=== PATIENT | female | born 1960 | race Caucasian/White ===

== ENCOUNTER 2016-06-27 12:34 | Inpatient (IN) | payer OTHER ==
[~2016-06-27] VITALS: Ht 158.8 cm; Wt 71.7 kg
[~2016-06-27 12:34] MED LIST: ADVAIR 250/501 DISK IH; FLEXERIL5 MG PO; KLONOPIN0.5 M1 PO; MOTRIN600 MG PO; NORCO 5/3251 TABLET PO; OMEPRAZOLE40 M1 PO; ONDANSETRON HCL4 MG PO; PROVENTIL,200 INHALA IH; RANITIDINE HCL300 MG PO; SEROQUEL100 MG PO; SUCRALFATE1 GM/10 ML PO
[2016-06-27 13:20] LABS: EOSINOPHIL (%) 1.5 % (0-5); EOSINOPHIL COUNT 0.1 K/uL (0-0.3); HEMATOCRIT 40.6 % (36.0-46.0); IMMATURE GRANULOCYTE (%) 0.6 % (0.0-0.7); IMMATURE GRANULOCYTE COUNT 0.4 K/uL; LYMPHOCYTE COUNT 3.5 K/uL (1.0-2.8); MCH 32.4 PG (29.0-34.0); MCHC 34.7 G/DL (30.0-36.0); MCV 93.3 FL (83-99); MONOCYTE (%) 9.1 % (3-12); MONOCYTE COUNT 0.6 K/uL (0-0.8); NEUTROPHIL (%) 36.8 % (45-76); NEUTROPHIL COUNT 2.5 K/uL (1.8-6.4); PLATELET COUNT 265 K/uL (156-360); RBC DIS.WIDTH-CV 13.1 % (11.8-14.6); RED BLOOD COUNT 4.35 M/uL (3.80-5.20); WHITE BLOOD COUNT 6.7 K/uL (4.1-10.2)
[2016-06-27 13:28] LABS: CHLORIDE 104 mEq/L (99-109)
[2016-06-27 13:29] LABS: POTASSIUM 3.7 mEq/L (3.7-5.4); SODIUM 137 mEq/L (136-147)
[2016-06-27 13:30] LABS: GLUCOSE 101 mg/dL (70-99); INTER. NORMALIZED RATIO 1.1; PROTHROMBIN TIME 11.4 (9.2-11.2); PTT 29.6 (25-32)
[2016-06-27 13:32] LABS: ANION GAP 11 MEQ/L (2-14)
[2016-06-27 13:34] LABS: GFR ESTIMATE (CALCULATED) > 59 mL/min/
[2016-06-27 13:35] LABS: UREA NITROGEN (BUN) 12 mg/dL (9-23)
[2016-06-27 13:40] LABS: TROP-I INTERPRETATION NEGATIVE; TROPONIN-I < 0.01 ng/mL (0.0-0.30)
[2016-06-27] MEDS ORDERED: VENTOLIN HFA18 GM IH (16:09)
[2016-06-27] MEDS ORDERED: LISINOPRIL-HCT1 EAC3 PO (16:10)
[2016-06-27] MEDS ORDERED: BENADRYL25 MG PO (16:11)
[2016-06-27] MEDS ORDERED: COMBIVENT RESPIM4 GM IH (16:11)
[2016-06-27] MEDS ORDERED: TRAMADOL HCL50 MG PO (16:11)
[2016-06-27 17:33] LABS: D-DIMER ELISA 0.22 mg/L FEU (< 0.57)
[2016-06-27 17:47] LABS: HDL CHOLESTEROL 58 MG/DL (Desirable>=50); LDL CHOLESTEROL 96 mg/dL (Desirable<100); NON-HDL CHOLESTEROL 105 mg/dL (Desirable<160); TOTAL CHOLESTEROL 163 mg/dL (Desirable<200); TRIGLYCERIDES 46 MG/DL (Normal: <150)
[2016-06-27 17:48] VITALS: BP 117/77
[2016-06-27 19:11] LABS: TROP-I INTERPRETATION NEGATIVE; TROPONIN-I < 0.01 ng/mL (0.0-0.30)
[2016-06-28] VITALS (7 sets, daily range): BP systolic 88–109; BP diastolic 51–65
[2016-06-28 01:30] LABS: TROP-I INTERPRETATION NEGATIVE; TROPONIN-I < 0.01 ng/mL (0.0-0.30)
[2016-06-28 06:35] LABS: HEMATOCRIT 35.6 % (36.0-46.0); MCH 31.9 PG (29.0-34.0); MCHC 33.1 G/DL (30.0-36.0); MCV 96.2 FL (83-99); MEAN PLAT.VOLUME 9.4 uM^3 (9.5-12.4); PLATELET COUNT 202 K/uL (156-360); RBC DIS.WIDTH-CV 13.4 % (11.8-14.6); WHITE BLOOD COUNT 6.7 K/uL (4.1-10.2)
[2016-06-28 06:50] LABS: ANION GAP 8 MEQ/L (2-14); CHLORIDE 103 MEQ/L (99-109); GFR ESTIMATE (CALCULATED) > 59 mL/min/; GLUCOSE 77 mg/dL (70-99); POTASSIUM 3.7 MEQ/L (3.7-5.4); SAMPLE HEMOLYSIS CHECK 0; SAMPLE ICTERIC CHECK 0; SAMPLE LIPEMIA CHECK 0; SODIUM 136 MEQ/L (136-147); UREA NITROGEN (BUN) 17 mg/dL (9-23)
[2016-06-28 09:22] LABS: LYME DISEASE SEROLOGY SCREEN NEGATIVE (NEGATIVE)
[2016-06-28 20:50] LABS: ADD MIUA? YES; BILIRUBIN NEGATIVE; BLOOD MODERATE; COLOR YELLOW ((YELLOW)); GLUCOSE (STRIP) NEGATIVE; KETONES NEGATIVE; LEUKOCYTES NEGATIVE; NITRITE NEGATIVE; PROTEIN (STRIP) NEGATIVE; SPECIFIC GRAVITY 1.014 (1.000-1.030); UROBILINOGEN 0.2 MG/DL (0.2-1.0)
[2016-06-28 21:01] LABS: BACTERIA 2+ /HPF; CASTS NONE SEEN /LPF; CRYSTALS NONE SEEN; EPITHELIAL CELLS 1+ /HPF; MUCUS RARE /LPF; RED BLOOD CELLS 0-5 /HPF (0-5); UCUL ADDED? NO; WHITE BLOOD CELLS 0-5 /HPF (0-5)
[2016-06-29 00:20] VITALS: BP 95/54
[2016-06-29 04:04] VITALS: BP 85/51
[2016-06-29 06:01] LABS: EOSINOPHIL (%) 1.9 % (0-5); EOSINOPHIL COUNT 0.1 K/uL (0-0.3); IMMATURE GRANULOCYTE (%) 0.2 % (0.0-0.7); MCHC 32.5 G/DL (30.0-36.0); MCV 98.5 FL (83-99); MEAN PLAT.VOLUME 9.3 uM^3 (9.5-12.4); MONOCYTE (%) 5.2 % (3-12); MONOCYTE COUNT 0.3 K/uL (0-0.8); NEUTROPHIL (%) 41.3 % (45-76); NEUTROPHIL COUNT 2.4 K/uL (1.8-6.4); PLATELET COUNT 201 K/uL (156-360); RBC DIS.WIDTH-CV 13.8 % (11.8-14.6); RBC DIS.WIDTH-SD 49.5 % (39-53); RED BLOOD COUNT 3.25 M/uL (3.80-5.20); WHITE BLOOD COUNT 5.8 K/uL (4.1-10.2)
[2016-06-29 06:30] LABS: ALKALINE PHOSPHATASE 66 IU/L (3-129); AMYLASE 27 IU/L (1-118); ANION GAP 7 MEQ/L (2-14); CHLORIDE 109 MEQ/L (99-109); DIRECT BILIRUBIN 0.1 mg/dL (0.0-0.3); GFR ESTIMATE (CALCULATED) > 59 mL/min/; POTASSIUM 3.9 MEQ/L (3.7-5.4); SAMPLE HEMOLYSIS CHECK 0; SAMPLE ICTERIC CHECK 0; SAMPLE LIPEMIA CHECK 0; SODIUM 142 MEQ/L (136-147); TOTAL BILIRUBIN 0.2 MG/DL (0.0-1.0); UREA NITROGEN (BUN) 11 mg/dL (9-23)
[2016-06-29 06:33] LABS: GLUCOSE 97 mg/dL (70-99)
[2016-06-29 07:43] VITALS: BP 95/59
[2016-06-29 11:05] VITALS: BP 113/69
[2016-06-29 15:16] VITALS: BP 124/69
[2016-06-29 20:14] VITALS: BP 133/73
[2016-06-30 00:21] VITALS: BP 130/74
[2016-06-30 04:53] LABS: EOSINOPHIL (%) 2.1 % (0-5); EOSINOPHIL COUNT 0.1 K/uL (0-0.3); HEMATOCRIT 31.8 % (36.0-46.0); MEAN PLAT.VOLUME 9.1 uM^3 (9.5-12.4); MONOCYTE (%) 7.9 % (3-12); MONOCYTE COUNT 0.5 K/uL (0-0.8); NEUTROPHIL (%) 40.7 % (45-76); NEUTROPHIL COUNT 2.5 K/uL (1.8-6.4); PLATELET COUNT 224 K/uL (156-360); RBC DIS.WIDTH-CV 13.3 % (11.8-14.6); RED BLOOD COUNT 3.28 M/uL (3.80-5.20); WHITE BLOOD COUNT 6.1 K/uL (4.1-10.2)
[2016-06-30 04:55] VITALS: BP 104/65
[2016-06-30 05:01] LABS: CHLORIDE 107 mEq/L (99-109); POTASSIUM 4.1 mEq/L (3.7-5.4); SODIUM 142 mEq/L (136-147)
[2016-06-30 05:03] LABS: GLUCOSE 95 mg/dL (70-99)
[2016-06-30 05:04] LABS: ANION GAP 7 MEQ/L (2-14)
[2016-06-30 05:05] LABS: TOTAL BILIRUBIN 0.1 mg/dL (0.0-1.0)
[2016-06-30 05:06] LABS: ALKALINE PHOSPHATASE 80 IU/L (3-129)
[2016-06-30 05:07] LABS: GFR ESTIMATE (CALCULATED) > 59 mL/min/
[2016-06-30 05:08] LABS: UREA NITROGEN (BUN) 14 mg/dL (9-23)
[2016-06-30 08:45] VITALS: BP 101/58
[2016-06-30 11:50] VITALS: BP 91/55
[2016-06-30 15:53] VITALS: BP 127/66
[2016-06-30 19:44] VITALS: BP 115/63
[2016-07-01 00:04] VITALS: BP 122/64
[2016-07-01 04:16] VITALS: BP 128/70
[2016-07-01 06:24] LABS: EOSINOPHIL (%) 3.4 % (0-5); EOSINOPHIL COUNT 0.2 K/uL (0-0.3); IMMATURE GRANULOCYTE (%) 0.2 % (0.0-0.7); LYMPHOCYTE COUNT 2.5 K/uL (1.0-2.8); MCHC 32.9 G/DL (30.0-36.0); MCV 97.1 FL (83-99); MEAN PLAT.VOLUME 9.4 uM^3 (9.5-12.4); MONOCYTE (%) 7.4 % (3-12); MONOCYTE COUNT 0.4 K/uL (0-0.8); NEUTROPHIL (%) 35.3 % (45-76); NEUTROPHIL COUNT 1.7 K/uL (1.8-6.4); PLATELET COUNT 219 K/uL (156-360); RBC DIS.WIDTH-CV 13.5 % (11.8-14.6); RBC DIS.WIDTH-SD 47.8 % (39-53); WHITE BLOOD COUNT 4.7 K/uL (4.1-10.2)
[2016-07-01 06:58] LABS: ALKALINE PHOSPHATASE 68 IU/L (3-129); ANION GAP 6 MEQ/L (2-14); CHLORIDE 102 MEQ/L (99-109); GFR ESTIMATE (CALCULATED) > 59 mL/min/; GLUCOSE 88 mg/dL (70-99); POTASSIUM 3.9 MEQ/L (3.7-5.4); SAMPLE HEMOLYSIS CHECK 0; SAMPLE ICTERIC CHECK 0; SAMPLE LIPEMIA CHECK 0; SODIUM 140 MEQ/L (136-147); UREA NITROGEN (BUN) 17 mg/dL (9-23)
[2016-07-01 06:59] LABS: TOTAL BILIRUBIN 0.3 MG/DL (0.0-1.0)
[2016-07-01 08:08] VITALS: BP 84/51
[2016-07-01 10:35] VITALS: BP 111/72
[2016-07-01 16:33] VITALS: BP 112/68
[2016-07-01 20:23] VITALS: BP 127/63
[2016-07-02 00:58] VITALS: BP 102/54
[2016-07-02 04:36] VITALS: BP 101/56
[2016-07-02] MEDS ORDERED: ASPIR-LOW81 MG PO (07:26)
[2016-07-02] MEDS ORDERED: LIDOCAINE700 MG TD (07:29)
[2016-07-02] MEDS ORDERED: MEDROL DOSEPAK4 MG PO (07:29)
[2016-07-02] MEDS ORDERED: PANTOPRAZOLE SO40 MG PO (07:29)
[2016-07-02 08:12] VITALS: BP 89/54
== END 2016-07-02 13:40 | disposition home or self-care (01) | DRG 313 ==
LOC: EME → EDBD 12:34 → EDOF 15:36 → 5WEST 15:36 → 3EAST 06-28 14:32 → 5WEST 06-28 14:32 → 4SOUTH 06-28 17:04 → 3EAST 06-29 16:14
PROVIDERS: Emergency Medicine; Internal Medicine; Nurse Practitioner Adult Health; Physician Assistant
DX: R07.89 Other chest pain (principal); R10.12 Left upper quadrant pain; R10.13 Epigastric pain; I95.9 Hypotension, unspecified; K21.9 Gastro-esophageal reflux disease without esophagitis; F41.9 Anxiety disorder, unspecified; F32.9 Major depressive disorder, single episode, unspecified; J45.909 Unspecified asthma, uncomplicated; I10 Essential (primary) hypertension; G43.909 Migraine, unspecified, not intractable, without status migrainosus; F17.210 Nicotine dependence, cigarettes, uncomplicated; I45.10 Unspecified right bundle-branch block; D64.9 Anemia, unspecified; R31.0 Gross hematuria; G89.4 Chronic pain syndrome; K59.00 Constipation, unspecified; R63.4 Abnormal weight loss; Z88.0 Allergy status to penicillin; Z88.1 Allergy status to other antibiotic agents
CPT/HCPCS: 71010; 71020; 72125; 74150; 80048; 80053; 80061; 80076; 81003; 82150; 84443; 84484; 85025; 85027; 85379; 85610; 85730; 86618; 93005; 94640; 94640 76; 99202; 99281; 99285; C9113; G0378; J1170; J1200; J1885; J2270; J2405; J7030; J7040

== ENCOUNTER 2016-11-21 09:20 | Day surgery (SDC) | payer OTHER ==
[~2016-11-21] VITALS: Ht 158.8 cm; Wt 66.3 kg
[~2016-11-21 09:20] MED LIST changes: +ASPIR-LOW81 MG PO; +BENADRYL25 MG PO; +COMBIVENT RESPIM4 GM IH; +FLEXERIL10 MG PO; +LIDOCAINE700 MG TD; +LISINOPRIL-HCT1 EAC3 PO; +MEDROL DOSEPAK4 MG PO; +PANTOPRAZOLE SO40 MG PO; +PRINZIDE 20-121 EACH PO; +SEROQUEL50 MG PO; +TRAMADOL HCL50 MG PO; +VENTOLIN HFA18 GM IH; +VICODIN 5-3001 EACH PO; +ZANTAC150 MG PO
[2016-11-22] MEDS ORDERED: HYDROCODON-ACE1 EAC7 PO (08:56)
== END 2016-11-21 10:55 | disposition home or self-care (01) ==
LOC: PAIN 09:20 → SDC 10:00 → PAIN 10:55
PROC: 3E0T3BZ Introduction of Anesthetic Agent into Peripheral Nerves and Plexi, Percutaneous Approach (ICD-10-PCS; principal; 2016-11-21)
PROC: 3E0T33Z Introduction of Anti-inflammatory into Peripheral Nerves and Plexi, Percutaneous Approach (ICD-10-PCS; principal; 2016-11-21)
PROC: BR161ZZ Fluoroscopy of Lumbar Facet Joint(s) using Low Osmolar Contrast (ICD-10-PCS; principal; 2016-11-21)
DX: M47.816 Spondylosis without myelopathy or radiculopathy, lumbar region (principal); M54.5 Low back pain; F41.9 Anxiety disorder, unspecified; Z88.8 Allergy status to other drugs, medicaments and biological substances
CPT/HCPCS: J1030; J2250; J3010; S0020

== ENCOUNTER 2016-11-28 12:32 | Day surgery (SDC) | payer OTHER ==
[~2016-11-28] VITALS: Ht 158.8 cm; Wt 66.3 kg
[~2016-11-28 12:32] MED LIST changes: +HYDROCODON-ACE1 EAC7 PO
== END 2016-11-28 14:25 | disposition home or self-care (01) ==
LOC: PAIN 12:32 → SDC 13:15 → PAIN 14:25
DX: M47.26 Other spondylosis with radiculopathy, lumbar region (principal); M51.16 Intervertebral disc disorders with radiculopathy, lumbar region; G89.29 Other chronic pain; M54.5 Low back pain; M54.12 Radiculopathy, cervical region; I10 Essential (primary) hypertension; K21.9 Gastro-esophageal reflux disease without esophagitis; Z88.0 Allergy status to penicillin; F17.210 Nicotine dependence, cigarettes, uncomplicated; Z79.891 Long term (current) use of opiate analgesic
CPT/HCPCS: J1030; J2250; J3010; S0020

== ENCOUNTER 2017-02-17 11:04 | Day surgery (SDC) | payer OTHER ==
[~2017-02-17] VITALS: Ht 157.5 cm; Wt 66.2 kg
== END 2017-02-17 13:40 | disposition home or self-care (01) ==
LOC: PAIN 11:04 → SDC 12:00 → PAIN 12:00
DX: M47.26 Other spondylosis with radiculopathy, lumbar region (principal); M51.16 Intervertebral disc disorders with radiculopathy, lumbar region; M48.06 Spinal stenosis, lumbar region; F41.9 Anxiety disorder, unspecified; J45.909 Unspecified asthma, uncomplicated; K21.9 Gastro-esophageal reflux disease without esophagitis; I10 Essential (primary) hypertension; Z88.0 Allergy status to penicillin; M48.02 Spinal stenosis, cervical region; F17.200 Nicotine dependence, unspecified, uncomplicated; Z79.891 Long term (current) use of opiate analgesic
CPT/HCPCS: J1030; J2250; J3010; S0020

== ENCOUNTER 2017-02-24 09:48 | Day surgery (SDC) | payer OTHER ==
[~2017-02-24] VITALS: Ht 158.8 cm; Wt 63.5 kg
== END 2017-02-24 12:07 | disposition home or self-care (01) ==
LOC: PAIN 09:48 → SDC 10:30 → PAIN 12:07
PROC: 015B3ZZ Destruction of Lumbar Nerve, Percutaneous Approach (ICD-10-PCS; principal; 2017-02-24)
DX: M47.816 Spondylosis without myelopathy or radiculopathy, lumbar region (principal); F17.200 Nicotine dependence, unspecified, uncomplicated; Z79.899 Other long term (current) drug therapy; I10 Essential (primary) hypertension; J45.909 Unspecified asthma, uncomplicated; K21.9 Gastro-esophageal reflux disease without esophagitis; Z91.041 Radiographic dye allergy status; Z88.0 Allergy status to penicillin; Z88.1 Allergy status to other antibiotic agents; Z88.8 Allergy status to other drugs, medicaments and biological substances
CPT/HCPCS: J1030; J1885; J2250; J3010; S0020

== ENCOUNTER 2017-07-28 08:50 | Day surgery (SDC) | payer OTHER ==
[~2017-07-28] VITALS: Ht 158.8 cm; Wt 62.6 kg
[~2017-07-28 08:50] MED LIST changes: +ELAVIL25 MG PO; +PERCOCET 5/31 TABLET PO
[2017-07-28 09:57] LABS: CHLORIDE 105 MEQ/L (99-109); POTASSIUM 4.3 MEQ/L (3.7-5.4); SODIUM 138 MEQ/L (136-147)
[2017-07-28 10:02] LABS: CREATININE 0.7 MG/DL (0.6-1.3); GFR ESTIMATE (CALCULATED) > 59 mL/min/; GLUCOSE 120 mg/dL (70-99); UREA NITROGEN (BUN) 12 mg/dL (9-23)
== END 2017-07-28 10:35 | disposition home or self-care (01) ==
LOC: PAIN 08:50
PROVIDERS: Anesthesiology Pain Medicine
DX: M47.816 Spondylosis without myelopathy or radiculopathy, lumbar region (principal); M51.16 Intervertebral disc disorders with radiculopathy, lumbar region; M54.5 Low back pain; G89.29 Other chronic pain; F41.9 Anxiety disorder, unspecified; I10 Essential (primary) hypertension; Z88.0 Allergy status to penicillin; Z88.8 Allergy status to other drugs, medicaments and biological substances; F17.200 Nicotine dependence, unspecified, uncomplicated; Z79.891 Long term (current) use of opiate analgesic
CPT/HCPCS: 80048; 93005; J1100; J2250; J3010

== ENCOUNTER 2017-10-27 12:03 | Day surgery (SDC) | payer OTHER ==
[~2017-10-27] VITALS: Ht 158.8 cm; Wt 65.8 kg
== END 2017-10-27 13:50 | disposition home or self-care (01) ==
LOC: PAIN 12:03 → SDC 12:30 → PAIN 13:50
DX: M51.16 Intervertebral disc disorders with radiculopathy, lumbar region (principal); M47.816 Spondylosis without myelopathy or radiculopathy, lumbar region; M48.061 Spinal stenosis, lumbar region without neurogenic claudication; G89.29 Other chronic pain; I10 Essential (primary) hypertension; K21.9 Gastro-esophageal reflux disease without esophagitis; F41.9 Anxiety disorder, unspecified; J45.909 Unspecified asthma, uncomplicated; I45.10 Unspecified right bundle-branch block; F17.200 Nicotine dependence, unspecified, uncomplicated; Z88.8 Allergy status to other drugs, medicaments and biological substances; Z79.891 Long term (current) use of opiate analgesic
CPT/HCPCS: J1100; J3010

== ENCOUNTER 2017-11-24 11:49 | Day surgery (SDC) | payer OTHER ==
[~2017-11-24] VITALS: Ht 158.8 cm; Wt 62.6 kg
== END 2017-11-24 13:50 | disposition home or self-care (01) ==
LOC: PAIN 11:49
DX: M54.16 Radiculopathy, lumbar region (principal); G89.29 Other chronic pain; M47.816 Spondylosis without myelopathy or radiculopathy, lumbar region; M54.2 Cervicalgia; M43.10 Spondylolisthesis, site unspecified; M99.81 Other biomechanical lesions of cervical region; F17.200 Nicotine dependence, unspecified, uncomplicated; Z88.0 Allergy status to penicillin; Z88.1 Allergy status to other antibiotic agents; Z88.8 Allergy status to other drugs, medicaments and biological substances
CPT/HCPCS: J1100; J2250; J3010